=== PATIENT | female | born 1970 | race Caucasian/White ===

== ENCOUNTER 2019-09-08 23:20 | Inpatient (IN) | payer OTHER ==
[2019-09-09 02:13] LABS: Legionella Urinary Ag Negative (Negative); Strep pneumo Urine Ag NEGATIVE (NEGATIVE)
[2019-09-09] MEDS ORDERED: Ondansetron ODT 4 MG TAB PO SCH (03:00)
[2019-09-09] MEDS: Acetaminophen 325 MG TAB PO PRN (03:24)
[2019-09-09] MEDS ORDERED: Senokot S 8.6-50 MG TAB PO PRN (03:57)
[2019-09-09] MEDS: Levothyroxine Sodium 100 MCG TAB PO SCH (04:31)
[2019-09-09] MEDS: Sodium Chloride 0.9% 1,000 ML IV SCH (04:32)
[2019-09-09 06:31] LABS: HBCM Index 0.05 S/CO (0-0.79); Hep A IgM AB Non-Reactive (NonReactive); Hep A IgM S/CO 0.13 S/CO (0-0.79); Hep B Surf Ag Non-Reactive S/CO (NonReactive); Hep C IgG Ab Non-Reactive (NonReactive); Hep C Index 0.09 S/CO (0-0.79); Hepatitis B Core IgM Abs Non-Reactive (NonReactive)
[2019-09-09] MEDS: Calcitriol 0.25 MCG CAP PO SCH (08:21)
[2019-09-09] MEDS: Ferrous Sulfate 325 MG TAB PO SCH ×3 (08:21→16:59)
[2019-09-09] MEDS: Enoxaparin Sodium 40 MG/0.4 ML SYRINGE SC SCH (08:21)
[2019-09-09] MEDS: Aspirin 325 mg Enteric Coated Tablet PO SCH (08:21)
[2019-09-09] MEDS: Loratadine 10 MG TAB PO SCH (08:21)
[2019-09-09] MEDS: FLUoxetine HCl 20 MG CAP PO SCH ×2 (08:21→20:40)
--- NOTE | 2019-09-09 10:29 | CT ---
Exam: Chest CT with contrast HISTORY: Pneumonia. Hypoxia. COMPARISON: 09/08/2019 FINDINGS: Lower neck and axilla: No masses or lymphadenopathy Mediastinum: No mass, lymphadenopathy or hematoma. HEART: Normal heart size. No significant pericardial fluid. Aorta: Normal caliber. No periaortic fat stranding Upper abdomen: Hypoattenuation of liver suggesting hepatic steatosis. Surgically absent gallbladder. Indeterminate 1.5 x 1.3 cm lesion in the right renal cortex. Trachea and central bronchi: Patent Pleural spaces: No pleural effusion or pneumothorax LUNGS: There are diffuse groundglass opacities throughout the lung parenchyma. Nodules: No suspicious masses or nodules in the left or right lung. Osseous structures: No acute osseous abnormalities IMPRESSION: Diffuse multifocal groundglass opacities. Correlate for edema, infiltrate due to a viral process or i nhalation of noxious substance. Continued surveillance to ensure resolution is recommended. When compared to the previous examination, the degree of groundglass opacification has progressed in the l eft and right lung.
--- NOTE | 2019-09-09 13:28 | CON ---
DATE OF CONSULTATION: 09/09/2019 HISTORY OF PRESENT ILLNESS: A 49-year-old lady with history of hypertension, some form of heart problem, which she describes as a dilated heart, who usually goes to [place] for medical and lives in [place] and recently went to [place] to visit some relatives came back to [facility] and then developed respiratory illness about 3 to 4 days ago, which is progressively getting worse. She had some fever associated with it and some runny nose and nausea. The patient has been started on antimicrobial therapy. An influenza test was negative. Currently, she is awake and alert, has a raspy voice and no headaches. No visual symptoms. Some sore throat, coughing intermittently, but not much sputum production. No chest pain. No back pain. No abdominal pain or diarrhea. No genitourinary symptoms. No joint symptoms. No neurological symptoms. PAST MEDICAL HISTORY: Hypertension, enlarged heart, hypothyroidism, and asthma. SOCIAL HISTORY: Current smoker. Lives in [place]. Recent travel to [place], [place], and [place]. FAMILY HISTORY: Noncontributory. Otherwise, no recent contact with any sick person. ALLERGIES: VARIOUS INHALERS, CEPHALOSPORIN, CHANTIX, DOXYCYCLINE, FLONASE, NAPROXEN, SULFA DRUGS. MEDICATION LIST: She had been on: 1. Inhalers. 2. Augmentin. 3. Ferrous sulfate. 4. Fluticasone. 5. Lansoprazole. 6. Levothyroxine. 7. Lisinopril. 8. Loratadine. 10. Tizanidine. 11. Zofran. 12. Imitrex. 13. Temazepam. PHYSICAL EXAMINATION: VITAL SIGNS: T-max 101, now she is 98.1, blood pressure 104/70, pulse 84, respirations 18 to 26, and O2 saturation 95% on 2 L. SKIN: Normal. There is no lymphadenopathy. HEENT: Ocular movements conjugate. Oral cavity with quite a few missing teeth, some gum disease. NECK: Supple. No jugular vein distention. LUNGS: With faint inspiratory crackles, right and left hemithorax. HEART: S1 and S2. Regular rate. No S3 or S4. ABDOMEN: Soft. Not distended or tender. No ascites. No bladder distention. No joint inflammatory activity. EXTREMITIES: No edema. Pulses are 1+ in dorsalis pedis. Cap refill normal. Moves extremities equally. Plantar responses are flexor. No clonus. NEUROLOGIC: She is awake, alert, and oriented. Speech appears to be normal. Follows commands. Good orientation. LABORATORY DATA: Labs from yesterday, white cell count 17,000, hemoglobin 13.6, platelets 420. Predominance of mature neutrophils. Creatinine 0.96. Liver profile with AST 51, ALT 59, alkaline phosphatase 119, CK 241. TSH is normal. Urinalysis with 0 to 3 wbc's. Two sets of blood cultures pending. Influenza A and B negative. CT of the chest with patchy ground-glass opacities in both lung koroma, upper and lower lungs, relatively sparing of right lower lobe. Small nodular densities seen. ASSESSMENT: 1. Hypertension with cardiomegaly in some form of atrial arrhythmia in the past. 2. Respiratory illness of acute onset over the past 4 days with some travel history and diffuse ground-glass opacities in lung koroma. 3. Neutrophilia. DISCUSSION: Differential diagnosis includes viral pneumonias versus bacterial atypical pneumonia. The CHF would be another possibility, but that appears less likely, although there might be a component of both. Check respiratory virus PCR panel. If that is negative, then I would recommend testing for coronavirus, COVID-19. I would keep her on strict droplet precautions if not airborne. If the respiratory virus PCR is negative, I would probably transfer to airborne until COVID testing is negative. May consider IND use of Remdesivir if test is + for Covid- 19 or combination Kaletra/Ritonavir. Job ID: [id number] [facility]
[2019-09-09] MEDS ORDERED: Iopamidol-370 76% 500 ML 1 ML ONE (15:19)
[2019-09-09] MEDS: Temazepam 15 MG CAP PO SCH (20:41)
[2019-09-09] MEDS ORDERED: FLU VACC QS2019-20(6MOS UP)/PF 60 MCG/0.5 ML SYRINGE IM ONE (21:00)
[2019-09-10] MEDS: Sodium Chloride 0.9% 1,000 ML IV SCH ×2 (00:02→20:32)
[2019-09-10] MEDS: Levothyroxine Sodium 100 MCG TAB PO SCH (05:11)
[2019-09-10 05:42] LABS: #Eosinphils 0.1 thou/uL (0.0-0.7); #Monocytes 0.8 thou/uL (0.11-0.59); #Neutrophils 14.7 thou/uL (1.40-6.50); %Eosinophils 0.7 % (0.0-10.0); %Lymphocytes 11.6 % (21.0-51.0); %Monocytes 4.6 % (0.0-10.0); %Neutrophils 83.1 % (42.0-75.0); Hemoglobin 12.3 g/dL (12.0-16.0); Mean Corpuscular HGB CONC 33.8 g/dL (32.0-36.0); Mean Corpuscular Hemoglobin 32.1 pg (27.0-31.0); Mean Corpuscular Volume 94.7 fL (78.0-98.0); Mean Platelet Volume 6.2 fL (7.4-10.4); Platelet Count 438 thou/uL (130-400); RBC Distribution Width 12.8 % (11.5-14.5); Red Blood Cell (RBC) Count 3.82 mill/uL (4.20-5.40); White Blood Cell (WBC) Count 17.6 thou/uL (4.8-10.8)
[2019-09-10 06:17] LABS: Anion Gap 15 mmol/L (10-20); BUN (Urea Nitrogen) 11 mg/dL (7.0-18.7); Calc. Creatinine Clearance 148 mL/min (70-130); Calcium 7.5 mg/dL (7.8-10.44); Carbon Dioxide 16 mmol/L (22-29); Chloride 107 mmol/L (98-107); Estimated GFR-MDRD 76; Glucose 101 mg/dL (70-105); Potassium 3.6 mmol/L (3.5-5.1); Sodium 134 mmol/L (136-145)
[2019-09-10] MEDS: FLUoxetine HCl 20 MG CAP PO SCH ×2 (08:23→20:41)
[2019-09-10] MEDS: Enoxaparin Sodium 40 MG/0.4 ML SYRINGE SC SCH (08:23)
[2019-09-10] MEDS: Aspirin 325 mg Enteric Coated Tablet PO SCH (08:23)
[2019-09-10] MEDS: Loratadine 10 MG TAB PO SCH (08:23)
[2019-09-10] MEDS: Ferrous Sulfate 325 MG TAB PO SCH ×3 (08:23→16:25)
[2019-09-10] MEDS: Calcitriol 0.25 MCG CAP PO SCH (08:23)
--- NOTE | 2019-09-10 10:59 | PRG ---
DATE OF SERVICE: 09/10/2019 SUBJECTIVE: The patient is transferred to airborne precaution room. She is complaining of dyspnea at rest with 4 L of nasal cannula O2 supplementation. No headaches. A little bit of cough. No sputum production. No abdominal pain. She is able to eat breakfast. No vomiting. No chest pain. Voiding without difficulty. No diarrhea. No genitourinary symptoms. No neurological symptoms. OBJECTIVE: VITAL SIGNS: T-max is down to 99.4, 99.6. She is now 98.9, pulse is 92, O2 saturation is 90% on 4 L nasal cannula. GENERAL: Awake, alert, and oriented. HEENT: Ocular movements conjugate. Sclerae white. Pupils are equal and reactive. LUNGS: With faint inspiratory crackles in right and left base. HEART: S1 and S2. Regular rate. No S3 or S4. ABDOMEN: Soft, not distended or tender. No ascites. No bladder distention. EXTREMITIES: No joint inflammatory activity. Moves extremities equally. NEURO: Alert, oriented. Speech is normal. Follows commands. LABORATORY DATA: Labs need to be repeated today. The respiratory virus PCR from yesterday was negative. ASSESSMENT AND DISCUSSION: Hypertension, cardiomegaly, some form of atrial arrhythmia, and respiratory illness of acute onset after travel to [place] among other places, diffuse ground-glass opacities in lung koroma per CT. Again, the differential diagnosis includes the possibility of SARS-2 coronavirus infection , and the patient's testing is in process. We will try to see if we can get another lab to run the test, maybe either [facility] or [facility] to see if we can get a faster result. The patient may need to be transferred to the intensive care unit depending on future developments, repeat labs and chest x-ray. Remdesivir protocol requires a + test. Job ID: [id number] [facility]
--- NOTE | 2019-09-10 11:51 | RAD ---
XR Chest 1 View Portable HISTORY: Pneumonia COMPARISON: 08/10/2019 FINDINGS: The heart is normal. The lungs are expanded with prominent interstitial markings which demo nstrate mild interval worsening since last exam. No lobar consolidation, pneumothoraces or pleural effusions are seen.
[2019-09-10 11:52] LABS: #Basophils 0.1 thou/uL (0.0-0.2); #Eosinphils 0.1 thou/uL (0.0-0.7); #Lymphocytes 1.9 thou/uL (1.20-3.40); #Monocytes 0.7 thou/uL (0.11-0.59); #Neutrophils 13.6 thou/uL (1.40-6.50); %Basophils 0.5 % (0.0-1.0); %Eosinophils 0.6 % (0.0-10.0); %Lymphocytes 11.6 % (21.0-51.0); %Monocytes 4.2 % (0.0-10.0); %Neutrophils 83.1 % (42.0-75.0); Hemoglobin 11.9 g/dL (12.0-16.0); Mean Corpuscular HGB CONC 32.5 g/dL (32.0-36.0); Mean Corpuscular Hemoglobin 31.1 pg (27.0-31.0); Mean Corpuscular Volume 95.7 fL (78.0-98.0); Mean Platelet Volume 6.2 fL (7.4-10.4); Platelet Count 433 thou/uL (130-400); RBC Distribution Width 12.7 % (11.5-14.5); Red Blood Cell (RBC) Count 3.82 mill/uL (4.20-5.40); White Blood Cell (WBC) Count 16.3 thou/uL (4.8-10.8)
[2019-09-10 12:18] LABS: Anion Gap 15 mmol/L (10-20); BUN (Urea Nitrogen) 10 mg/dL (7.0-18.7); Calc. Creatinine Clearance 153 mL/min (70-130); Calcium 7.3 mg/dL (7.8-10.44); Carbon Dioxide 17 mmol/L (22-29); Chloride 104 mmol/L (98-107); Estimated GFR-MDRD 79; Glucose 132 mg/dL (70-105); Sodium 133 mmol/L (136-145)
[2019-09-10] MEDS ORDERED: predniSONE 20 MG TAB PO SCH (16:15)
[2019-09-10] MEDS ORDERED: Potassium Chloride 20 MEQ TAB PO SCH ×2 (16:15→17:00)
--- NOTE | 2019-09-10 18:07 | CON ---
DATE OF CONSULTATION: 09/10/2019 SERVICE: Pulmonary Medicine. REASON FOR CONSULTATION: ICU patient. HISTORY OF PRESENT ILLNESS: The patient is a 49-year-old white female with past medical history significant for COPD secondary to tobacco abuse. She had some recent travel. Within a week, she started having onset of fevers and increasing dyspnea that limits her activity. She presented to the emergency department. A chest x-ray demonstrated an atypical pattern of injury. A CT of the chest was performed, demonstrating diffuse ground-glass opacifications with a central predominance, sparing the periphery. Ultimately, Coronavirus as well within our differential, so she was appropriately isolated. She is being moved down to the ICU, so that she could be kept on a one-on-one basis. Her oxygen requirements are increasing ever so slightly. We escalated her to high-flow nasal cannula and she seemed to tolerate that quite well. PAST MEDICAL HISTORY: 1. Hypertension. 2. Hypothyroidism. 3. COPD. 4. Major depressive disorder. 5. Anemia. 6. Gastroesophageal reflux disease. 7. Rhinitis. 8. Migraine headache. PAST SURGICAL HISTORY: 1. Hysterectomy, partial. 2. Thyroidectomy, partial. 3. Cholecystectomy. 4. Tubal ligation. 5. Unilateral oophorectomy on the left. 6. Excision of fibroids from uterus. SOCIAL HISTORY: She currently smokes half pack to a pack on a daily basis and has greater than a [id number] history of smoking. Denies any illicit drugs. She has been without any alcohol for over a year. She vehemently denies any exposure to chemicals, dust, asbestos, or tuberculosis. She has no exposures to nebulized wheels or vaping. She denies applying any vapor rub around her chest or face. FAMILY HISTORY: Noncontributory. ALLERGIES: CEFACLOR, BENADRYL, DOXYCYCLINE, FLUTICASONE, HYDROCODONE, HYDROXYZINE, LATEX, MOMETASONE, NAPROXEN, MIDOL, PHENAZOPYRIDINE, SALMETEROL, POTASSIUM, SULFA, TETRACYCLINE, CHANTIX, AND ZYFLO. REVIEW OF SYSTEMS: General; head, ears, eyes, nose, and throat; cardiovascular; respiratory; GI; ; musculoskeletal; neurologic; and skin is negative except as mentioned in the HPI. PHYSICAL EXAMINATION: VITAL SIGNS: Afebrile currently with a T-max of 101 on presentation. Pulse 92, blood pressure 117/69, respirations 22, and saturation 98% on 40% delivered via high-flow nasal cannula. GENERAL: The patient is awake and alert, in no apparent distress. LUNGS: Decent air entry. No crackles appreciated. There is a prolonged expiratory phase with a little bit of wheezing. HEART: Normal rate. Regular. ABDOMEN: Soft, nontender, and nondistended. Bowel sounds are positive. MUSCULOSKELETAL: No cyanosis or clubbing. There is no pitting in the bilateral lower extremities. NEUROLOGIC: Grossly nonfocal. LABORATORY DATA: WBC 16.3, hemoglobin 11.9, and platelets 433,000. Basic metabolic profile is unremarkable except for a potassium of 3.0. Lactate has cleared to 1.6. TSH falls within the normal limits. Troponin is negative x1. AST and ALT are gently downtrending to 51 and 59 respectively, alkaline phosphatase is also improving. Calcium 8.2. CK of 241. Urinalysis is unremarkable except for a small amount of red blood cells. Urine drug screen is positive for benzodiazepines, but otherwise no foreign substances are detected. Hepatitis A, B, and C are all nonreactive. Strep and Legionella urine antigens are negative. Respiratory virus panel and influenza A and B are both unremarkable. IMAGING STUDIES: CT of the chest demonstrates ground-glass opacifications, scattered throughout bilateral lung koroma with sparing of the periphery. This is more severe centrally. ASSESSMENT: 1. Acute hypoxic respiratory failure. 2. Chronic obstructive pulmonary disease with acute exacerbation. 3. Community-acquired pneumonia, secondary to an atypical pathogen. DISCUSSION AND PLAN: I will put her on prednisone 40 mg p.o. daily. We will give her first dose now. We will schedule nebulized medications q.4 h. Agree with the antibiotic directed at atypical pathogens. Supportive measures will be continued. The Coronavirus assay have been sent off and will hopefully come back to us within 24 to 48 hours. She will remain appropriately isolated until we have results. Potassium will be replaced. Pulmonary/Critical Care will continue to follow along. 70 minutes have been devoted to this patient in various activities. I personally reviewed all imaging studies and laboratory data noted within this document. For fifty percent of this time, I was interacting with the patient at the bedside or coordinating care with the care team. For the remainder of the time I was immediately available to the patient in the hospital unit. Job ID: [id number] [facility]
[2019-09-10] MEDS: Lopinavir/Ritonavir 200-50mg TAB PO SCH (20:32)
[2019-09-10] MEDS: Temazepam 15 MG CAP PO SCH (20:32)
[2019-09-10] MEDS ORDERED: Fluticasone Propionate [Flovent Diskus] 50 MCG INH SCH (22:30)
[2019-09-10] MEDS: Acetaminophen 325 MG TAB PO PRN (22:49)
[2019-09-10] MEDS ORDERED: BUDESONIDE FORMOTEROL INH SCH (23:00)
[2019-09-11 03:58] LABS: #Lymphocytes 1.5 thou/uL (1.20-3.40); #Monocytes 0.7 thou/uL (0.11-0.59); #Neutrophils 15.4 thou/uL (1.40-6.50); %Eosinophils 0.2 % (0.0-10.0); %Lymphocytes 8.4 % (21.0-51.0); %Monocytes 3.7 % (0.0-10.0); %Neutrophils 87.6 % (42.0-75.0); Mean Corpuscular HGB CONC 33.4 g/dL (32.0-36.0); Mean Corpuscular Hemoglobin 31.9 pg (27.0-31.0); Mean Corpuscular Volume 95.4 fL (78.0-98.0); Mean Platelet Volume 6.2 fL (7.4-10.4); Platelet Count 462 thou/uL (130-400); RBC Distribution Width 12.7 % (11.5-14.5); Red Blood Cell (RBC) Count 3.75 mill/uL (4.20-5.40); White Blood Cell (WBC) Count 17.5 thou/uL (4.8-10.8)
[2019-09-11 04:19] LABS: ALT (SGPT) 50 U/L (8-55); AST (SGOT) 27 U/L (5-34); Albumin 3.2 g/dL (3.5-5.0); Alkaline Phosphatase 138 U/L (40-110); Anion Gap 12 mmol/L (10-20); BUN (Urea Nitrogen) 10 mg/dL (7.0-18.7); Bilirubin, Total 0.6 mg/dL (0.2-1.2); CK (CPK) 132 U/L (29-168); Calc. Creatinine Clearance 149 mL/min (70-130); Calcium 7.3 mg/dL (7.8-10.44); Carbon Dioxide 20 mmol/L (22-29); Chloride 108 mmol/L (98-107); Estimated GFR-MDRD 77; Globulin 3.5 g/dL (2.4-3.5); Glucose 139 mg/dL (70-105); Phosphorus 4.5 mg/dL (2.3-4.7); Potassium 3.8 mmol/L (3.5-5.1); Protein, Total 6.7 g/dL (6.0-8.3); Sodium 136 mmol/L (136-145)
[2019-09-11] MEDS: Levothyroxine Sodium 100 MCG TAB PO SCH (05:02)
[2019-09-11] MEDS: Sodium Chloride 0.9% 1,000 ML IV SCH ×2 (05:28→16:50)
[2019-09-11 06:05] VITALS: BMI 37.6
[2019-09-11] MEDS ORDERED: Fluticasone Propionate [Flovent Diskus] 50 MCG INH SCH (06:30)
[2019-09-11] MEDS: Ondansetron PF 4 MG/2 ML Vial IVP PRN (07:39)
[2019-09-11] MEDS: BUDESONIDE FORMOTEROL INH SCH ×2 (07:58→17:21)
[2019-09-11] MEDS: Calcitriol 0.25 MCG CAP PO SCH (08:40)
[2019-09-11] MEDS: Ferrous Sulfate 325 MG TAB PO SCH ×3 (08:40→16:50)
[2019-09-11] MEDS: Loratadine 10 MG TAB PO SCH (08:41)
[2019-09-11] MEDS: Lopinavir/Ritonavir 200-50mg TAB PO SCH (08:41)
[2019-09-11] MEDS: FLUoxetine HCl 20 MG CAP PO SCH ×2 (08:41→20:12)
[2019-09-11] MEDS: predniSONE 20 MG TAB PO SCH (08:41)
[2019-09-11] MEDS: Aspirin 325 mg Enteric Coated Tablet PO SCH (08:41)
[2019-09-11] MEDS: Enoxaparin Sodium 40 MG/0.4 ML SYRINGE SC SCH (08:42)
[2019-09-11] MEDS: Acetaminophen 325 MG TAB PO PRN (08:44)
[2019-09-11] MEDS: Potassium Chloride 20 MEQ TAB PO SCH ×2 (08:49→20:12)
[2019-09-11] MEDS ORDERED: Potassium Chloride 20 MEQ TAB PO SCH (09:00)
--- NOTE | 2019-09-11 09:07 | PRG ---
DATE OF SERVICE: 09/11/2019 SERVICE: Pulmonary Medicine. INTERVAL HISTORY: Overnight, the patient had a little bit of increasing shortness of breath. As such, she is put on high-flow nasal cannula. She settled down with that, but this morning, she still feels that her breathing is little short. She denies any current chest discomfort, nausea, or vomiting and is otherwise in her usual state of health. PHYSICAL EXAMINATION: VITAL SIGNS: Afebrile, currently with a T-max overnight of 100.3; pulse 95; blood pressure 116/76; respirations 31; and saturation 96%, currently on 40% via high-flow nasal cannula. GENERAL: The patient is awake and alert, in no apparent distress. LUNGS: Decent air entry. Crackles are present. No prolonged expiratory phase or wheezing is otherwise appreciated. HEART: Normal rate. Regular. ABDOMEN: Soft, nontender, and nondistended. Bowel sounds are positive. MUSCULOSKELETAL: No cyanosis or clubbing. There is no pitting in bilateral lower extremities. NEUROLOGIC: Grossly nonfocal. LABORATORY DATA: WBC 17.5, hemoglobin 12.0, and platelets 462,000. Basic metabolic profile is unremarkable. Liver function studies are also unremarkable. Legionella and urine strep antigens are negative. Hepatitis serologies are negative. Respiratory virus panel is negative. Influenza A and B are also unremarkable. ASSESSMENT: 1. Acute hypoxic respiratory failure. 2. Chronic obstructive pulmonary disease with acute exacerbation. 3. Community-acquired pneumonia secondary to atypical pathogen. 4. Abnormal CT characterized by centrally-located ground-glass opacifications, which are diffuse as well as a little interstitial fullness. There is sparing of the dependent and peripheral areas. DISCUSSION AND PLAN: We will continue supportive care including steroids, nebulized medications, and antibiotics. Antiviral therapy has been initiated. There is a possibility somebody know something, I do not. Coronavirus is on our differential, though if the test is negative, bronchoscopy may need to be considered. Pulmonary/Critical Care will follow. Job ID: [id number]
[2019-09-11 10:34] LABS: Ref Lab Test Ordered COVID19 PCR NASOPHAR
[2019-09-11 10:39] LABS: Ref Lab Test Ordered COVID19 PCR THROAT
--- NOTE | 2019-09-11 14:28 | PRG ---
DATE OF SERVICE: 09/11/2019 SUBJECTIVE: The patient is in C11. She is awake and appears more comfortable. Still a little bit tachypneic and a little raspy voice. No chest pain. No diarrhea. Able to eat. No sore throat. No genitourinary symptoms. No headaches. She had a temperature max of 100.3 yesterday at around 4 p.m. She has been afebrile since, but she has been started on corticosteroids, so that may mask the presentation. A little bit flushed in the facial area. No other skin lesions. She has a peripheral IV access and is urinating spontaneously in the bedside commode. OBJECTIVE: VITAL SIGNS: BP 119/69, heart rate 90, respiratory rate 41 to 45 with O2 saturation 92%. HEENT: Ocular movements are conjugate. Sclerae are white. Pupils are equal. LUNGS: With faint inspiratory crackles bilaterally. HEART: S1 and S2. Regular rate. ABDOMEN: Soft. Not distended or tender. No ascites. No bladder distention. MUSCULOSKELETAL: No joint inflammatory activity. EXTREMITIES: Trace edema in lower extremities. Moves all extremities equally. NEUROLOGIC: Cognitive function appears to be intact. She recalls that she was in the number of nurseries looking for rios, and so , she may have had some exposure to a particular antigen that may have been associated with hypersensitivity pneumonia. The first COVID-19 PCR was negative, which resulted I believe late last night. ASSESSMENT AND DISCUSSION: Hypertension, cardiomegaly, some form of atrial arrhythmia, respiratory illness with acute onset after travel to [place] and other places, diffuse ground-glass opacities. The chest x-ray is worse than previously. Her oxygenation is still somewhat marginal. There seems to be some improvement with corticosteroids. I have discussed the case with [facility] including Dr. Vaz, and we have agreed that still there is a significant pretest likelihood of the COVID-19, and we should repeat a second COVID-19 PCR. This is 3 to 4 days after the first one, and if this one is negative, then we could fully discontinue all the precautions and maybe treat her as possible hypersensitivity pneumonitis or cryptogenic organizing pneumonia, but also continue levofloxacin. Job ID: [id number] [facility]
[2019-09-11 15:33] LABS: Ref Lab Test Ordered COVID19 PCR NP; Ref Lab Test Ordered COVID19 PCR THROAT
--- NOTE | 2019-09-11 16:28 | PDOC.HOSPP ---
- Subjective Encounter Date: 09/11/19 Subjective: Doing a little better. Feels like the steroids are helping. Breathing a little deeper. - Objective Vital Signs & Weight: Vital Signs (12 hours) Temp Pulse Ox 09/11/19 16:00 97.7 F 09/11/19 11:00 97.9 F 09/11/19 08:14 95 09/11/19 08:00 6 L 09/11/19 07:00 97.6 F 09/11/19 05:00 99.0 F Weight Weight 240 lb 8.389 oz Most Recent Monitor Data Heart Rate from ECG 84 NIBP 127/75 NIBP BP-Mean 92 Respiration from ECG 28 SpO2 93 I&O: 09/10/19 09/11/19 09/12/19 06:59 06:59 06:59 Intake Total 2650 2406 420 Output Total 1800 520 Balance 2650 606 -100 Result Diagrams: 09/11/19 03:43 09/11/19 03:43 Hospitalist ROS - Medication Medications: Active Medications Generic Name Dose Route Start Last Admin Trade Name Freq PRN Reason Stop Dose Admin Acetaminophen 650 mg 09/09/19 02:48 09/11/19 08:44 Tylenol PO 650 mg Q4H PRN Administration Headache/Fever/Mild Pain (1-3) Aspirin 325 mg 09/09/19 09:00 09/11/19 08:41 Ecotrin PO 325 mg DAILY MARY LOU Administration Calcitriol 0.25 mcg 09/09/19 09:00 09/11/19 08:40 Rocaltrol PO 0.25 mcg DAILY MARY LOU Administration Enoxaparin Sodium 40 mg 09/09/19 09:00 09/11/19 08:42 Lovenox SC 40 mg 0900 MARY LOU Administration Ferrous Sulfate 325 mg 09/09/19 08:00 09/11/19 11:30 Feosol PO 325 mg TID-WM MARY LOU Administration Fluoxetine HCl 40 mg 09/09/19 09:00 09/11/19 08:41 Prozac PO 40 mg BID MARY LOU Administration Levofloxacin 750 mg/ Device 150 mls @ 100 mls/hr 09/09/19 05:00 09/11/19 05: 02 IVPB 150 mls Q24HR MARY LOU Administration Sodium Chloride 1,000 mls @ 50 mls/hr 09/09/19 04:00 09/11/19 05:28 Normal Saline 0.9% IV 1,000 mls .Q20H MARY LOU Administration Levothyroxine Sodium 200 mcg 09/09/19 06:00 09/11/19 05:02 Synthroid PO 200 mcg 0600 MARY LOU Administration Loratadine 10 mg 09/09/19 09:00 09/11/19 08:41 Claritin PO 10 mg DAILY MARY LOU Administration Ondansetron HCl 4 mg 09/09/19 03:57 09/11/19 07:39 Zofran IVP 4 mg Q6H PRN Administration Nausea/Vomiting Pantoprazole Sodium 40 mg 09/09/19 09:00 09/11/19 08:40 Protonix PO 40 mg DAILY MARY LOU Administration Budesonide 0 each 09/11/19 06:30 09/11/19 07:58 Formoterol 160/4.5 [ INH 1 each Symbicort] BID-RT MARY LOU Administration Potassium Chloride 20 meq 09/11/19 09:00 09/11/19 08:49 K-Dur PO 20 meq BID MARY LOU Administration Prednisone 40 mg 09/11/19 08:00 09/11/19 08:41 Prednisone PO 09/14/19 08:01 40 mg QAM-WM MARY LOU Administration Temazepam 30 mg 09/09/19 21:00 09/10/19 20:32 Restoril PO 30 mg HS MARY LOU Administration - Exam General Appearance: NAD, awake alert General - other findings: Hoarseness Heart: RRR, no murmur, no gallops, no rubs, normal peripheral pulses Respiratory: rales (Mild, diffuse) Gastrointestinal: soft, non-tender, non-distended, normal bowel sounds, no palpable masses, no hepatomegaly, no splenomegaly, no bruit Extremities: no cyanosis, no clubbing, no edema Musculoskeletal: normal tone Psychiatric: normal affect, normal behavior, A&O x 3 Hosp A/P (1) Acute respiratory failure with hypoxia Code(s): J96.01 - ACUTE RESPIRATORY FAILURE WITH HYPOXIA Status: Acute (2) Pneumonia Code(s): J18.9 - PNEUMONIA, UNSPECIFIED ORGANISM Status: Acute (3) COPD (chronic obstructive pulmonary disease) Status: Acute - Plan Patient initially admitted with respiratory symptoms, hypoxia and fever. CT consistent with viral pneumonia. Isolated and contacts limited. Covid 19 sent and is negative. Given the situation, a repeat is being sent and isolation continues. She has been on anti-virals, antibiotics and steroids. Subjectively feeling better. Pulm and ID treating. Continuing follow peripherally to keep contacts to essential providers only for now. Patient was visiting plant nurseries and symptoms developed within a few hours. May be a hypersensitivity type reaction.
[2019-09-11] MEDS: Temazepam 15 MG CAP PO SCH (20:12)
[2019-09-12] MEDS: Levothyroxine Sodium 100 MCG TAB PO SCH (04:36)
[2019-09-12] MEDS: Ondansetron PF 4 MG/2 ML Vial IVP PRN (06:27)
[2019-09-12] MEDS: BUDESONIDE FORMOTEROL INH SCH ×2 (07:15→17:37)
[2019-09-12] MEDS: Enoxaparin Sodium 40 MG/0.4 ML SYRINGE SC SCH (08:27)
[2019-09-12] MEDS: FLUoxetine HCl 20 MG CAP PO SCH ×2 (08:27→20:29)
[2019-09-12] MEDS: predniSONE 20 MG TAB PO SCH (08:28)
[2019-09-12] MEDS: Calcitriol 0.25 MCG CAP PO SCH (08:28)
[2019-09-12] MEDS: Aspirin 325 mg Enteric Coated Tablet PO SCH (08:28)
[2019-09-12] MEDS: Loratadine 10 MG TAB PO SCH (08:28)
[2019-09-12] MEDS: Potassium Chloride 20 MEQ TAB PO SCH ×2 (08:28→20:29)
[2019-09-12] MEDS: Ferrous Sulfate 325 MG TAB PO SCH ×3 (08:29→17:19)
[2019-09-12] MEDS: Sodium Chloride 0.9% 1,000 ML IV SCH (12:34)
--- NOTE | 2019-09-12 14:27 | PRG ---
DATE OF SERVICE: 09/12/2019 SUBJECTIVE: The patient states that she is feeling better. She has headaches right now, but she apparently has had headaches chronically for quite a few years. No sore throat. No more coughing. No sputum production. No chest pain. No abdominal pain. OBJECTIVE: VITAL SIGNS: The temperature has normalized probably from corticosteroid initiation. O2 saturations are on oxygen around 97%, off oxygen around 88%. A little flushed in the skin, probably from the steroids. HEART: S1 and S2. Regular rate. LUNGS: With faint inspiratory crackles right and left hemithorax. No wheezing. ABDOMEN: Soft, not distended. EXTREMITIES: Moves all extremities equally. LABORATORY DATA: White cell count 17.5, hemoglobin 12, platelets 462. Creatinine 0.8, alkaline phosphatase 138. The second Manzanares virus assay is pending, probably should be resulting Saturday. If negative, then we will stop all the precautions and continue corticosteroids assuming some form of hypersensitivity pneumonia. In that regard depending on clinical progress, she may require a bronchoscopy for further evaluation. Job ID: [id number]
--- NOTE | 2019-09-12 18:19 | PRG ---
DATE OF SERVICE: 09/12/2019 [place] reportedly continued to improve. Heart rate to take a shower today. Her initial appears to be improving. Statistically, most likely she has an atypical pneumonia. Job ID: [id number]
--- NOTE | 2019-09-12 19:47 | PDOC.HOSPP ---
- Subjective Encounter Date: 09/12/19 Encounter Time: 19:30 Subjective: f/u for pneumonitis of unclear etiology ruling out for COVID-19 with the first test completed and awaiting 2nd confirmation testing. Receiving Levaquin/ Prednisone. - Objective Vital Signs & Weight: Vital Signs (12 hours) Temp Pulse Ox 09/12/19 19:00 98.2 F 09/12/19 15:00 97.8 F 09/12/19 11:00 97.8 F 09/12/19 07:55 96 Weight Weight 239 lb 10.279 oz Most Recent Monitor Data Heart Rate from ECG 85 NIBP 122/82 NIBP BP-Mean 95 Respiration from ECG 24 SpO2 98 I&O: 09/11/19 09/12/19 09/13/19 06:59 06:59 06:59 Intake Total 2406 2927 1557 Output Total 1800 1470 1100 Balance 606 1457 457 Result Diagrams: 09/11/19 03:43 09/11/19 03:43 Additional Labs: Microbiology 09/09/19 12:00 Nasopharyngeal swab Respiratory Virus Panel (PCR) - Final 09/09/19 12:00 Nasopharyngeal swab Influenza Types A,B Direct EIA - Final Laboratory Tests 09/09/19 09/09/19 09/10/19 01:44 01:44 05:19 WBC 17.6 H Potassium Ur L.pneumophila Ag Negative Ur Strep pneumoniae Ag NEGATIVE 09/10/19 09/10/19 11:33 11:33 WBC 16.3 H Potassium 3.0 L Ur L.pneumophila Ag Ur Strep pneumoniae Ag EKG Reviewed by me: Yes (Tele - SR) Hospitalist ROS - Medication Medications: Active Medications Generic Name Dose Route Start Last Admin Trade Name Freq PRN Reason Stop Dose Admin Acetaminophen 650 mg 09/09/19 02:48 09/11/19 08:44 Tylenol PO 650 mg Q4H PRN Administration Headache/Fever/Mild Pain (1-3) Aspirin 325 mg 09/09/19 09:00 09/12/19 08:28 Ecotrin PO 325 mg DAILY MARY LOU Administration Calcitriol 0.25 mcg 09/09/19 09:00 09/12/19 08:28 Rocaltrol PO 0.25 mcg DAILY MARY LOU Administration Enoxaparin Sodium 40 mg 09/09/19 09:00 09/12/19 08:27 Lovenox SC 40 mg 0900 MARY LOU Administration Ferrous Sulfate 325 mg 09/09/19 08:00 09/12/19 17:19 Feosol PO 325 mg TID-WM MARY LOU Administration Fluoxetine HCl 40 mg 09/09/19 09:00 09/12/19 08:27 Prozac PO 40 mg BID MARY LOU Administration Levofloxacin 750 mg/ Device 150 mls @ 100 mls/hr 09/09/19 05:00 09/12/19 04: 36 IVPB 150 mls Q24HR MARY LOU Administration Levothyroxine Sodium 200 mcg 09/09/19 06:00 09/12/19 04:36 Synthroid PO 200 mcg 0600 MARY LOU Administration Loratadine 10 mg 09/09/19 09:00 09/12/19 08:28 Claritin PO 10 mg DAILY MARY LOU Administration Ondansetron HCl 4 mg 09/09/19 03:57 09/12/19 06:27 Zofran IVP 4 mg Q6H PRN Administration Nausea/Vomiting Pantoprazole Sodium 40 mg 09/09/19 09:00 09/12/19 08:28 Protonix PO 40 mg DAILY MARY LOU Administration Budesonide 0 each 09/11/19 06:30 09/12/19 17:37 Formoterol 160/4.5 [ INH Not Given Symbicort] BID-RT [facility] Potassium Chloride 20 meq 09/11/19 09:00 09/12/19 08:28 K-Dur PO 20 meq BID MARY LOU Administration Prednisone 40 mg 09/11/19 08:00 09/12/19 08:28 Prednisone PO 09/14/19 08:01 40 mg QAM-WM MARY LOU Administration Temazepam 30 mg 09/09/19 21:00 09/11/19 20:12 Restoril PO 30 mg HS MARY LOU Administration - Exam General Appearance: NAD, awake alert Eye: PERRL, anicteric sclera ENT: normocephalic atraumatic, no oropharyngeal lesions Neck: supple, symmetric, no JVD, no thyromegaly Heart: RRR, no murmur, no gallops, no rubs, normal peripheral pulses Respiratory: rhonchi, tachypneic, wheezes Respiratory - other findings: diminished bilat Gastrointestinal: soft, non-tender, non-distended, normal bowel sounds, no palpable masses Extremities: no cyanosis, no clubbing, no edema Skin: normal turgor, no lesions Neurological: cranial nerve grossly intact, no new deficit Musculoskeletal: normal tone, normal strength, no muscle wasting Psychiatric: normal affect, A&O x 3 Hosp A/P (1) Pneumonitis Code(s): J18.9 - PNEUMONIA, UNSPECIFIED ORGANISM Status: Acute Plan: Suspected viral/atypical pneumonitis/PNA, continue Prednisone/Levaquin, awaiting 2nd COVID-19 rule out, airborne/contact precautions (2) Acute respiratory failure with hypoxia Code(s): J96.01 - ACUTE RESPIRATORY FAILURE WITH HYPOXIA Status: Acute Plan: Continue O2 supplementation, titrate to clinical response (3) COPD (chronic obstructive pulmonary disease) Status: Chronic Plan: Resume Symbicort/Singulair, continue Prednisone/Levaquin (4) Hypokalemia Code(s): E87.6 - HYPOKALEMIA Status: Acute Plan: KCL supplementation, serial K+ monitoring - Plan continue antibiotics, older adult social work specialist, respiratory therapy, DVT proph w/SCDs Continue isolation precautions Continue Levaquin/Prednisone Await 2nd COVID-19 testing after initial negative x 1 Duonebs/Singulair
[2019-09-12] MEDS: Temazepam 15 MG CAP PO SCH (20:29)
[2019-09-12] MEDS ORDERED: Non-Formulary Item 1 EACH (Budesonide-Formoterol [Symbicort 160-4.5] 1 PUFF) INH SCH (21:00)
[2019-09-13] MEDS: Levothyroxine Sodium 100 MCG TAB PO SCH (05:27)
[2019-09-13] MEDS: Ferrous Sulfate 325 MG TAB PO SCH ×3 (08:19→17:10)
[2019-09-13] MEDS: Potassium Chloride 20 MEQ TAB PO SCH ×2 (08:19→20:33)
[2019-09-13] MEDS: predniSONE 20 MG TAB PO SCH (08:19)
[2019-09-13] MEDS: Meloxicam 7.5 MG TAB PO SCH (08:19)
[2019-09-13] MEDS: Aspirin 325 mg Enteric Coated Tablet PO SCH (08:19)
[2019-09-13] MEDS: Calcitriol 0.25 MCG CAP PO SCH (08:19)
[2019-09-13] MEDS: FLUoxetine HCl 20 MG CAP PO SCH ×2 (08:19→20:33)
[2019-09-13] MEDS: Lisinopril 10 MG TAB PO SCH (08:20)
[2019-09-13] MEDS: Enoxaparin Sodium 40 MG/0.4 ML SYRINGE SC SCH (08:20)
[2019-09-13] MEDS: Cyanocobalamin (Vitamin B-12) 1,000 MCG TAB PO SCH (08:20)
[2019-09-13] MEDS: Loratadine 10 MG TAB PO SCH (08:20)
[2019-09-13] MEDS ORDERED: Montelukast Sodium 4 mg Chewable Tablet PO SCH (09:00)
[2019-09-13] MEDS: BUDESONIDE FORMOTEROL INH SCH (10:58)
--- NOTE | 2019-09-13 14:20 | PDOC.HOSPP ---
- Subjective Encounter Date: 09/13/19 Encounter Time: 14:20 Subjective: f/u for pneumonitis on initial high-flow O2 and r/o for COVID-19 x 2 PCR's. Feels better overall and no fever noted. - Objective Vital Signs & Weight: Vital Signs (12 hours) Temp Pulse Resp BP BP BP Pulse Ox 09/13/19 11:49 98.3 F 93 18 124/83 95 09/13/19 08:20 133/84 09/13/19 08:00 94 L 09/13/19 07:39 97.6 F 94 18 133/84 94 L 09/13/19 04:33 97.9 F 82 20 121/73 95 Weight Weight 239 lb 10.279 oz Most Recent Monitor Data Heart Rate from ECG 86 NIBP 120/84 NIBP BP-Mean 96 Respiration from ECG 23 SpO2 98 I&O: 09/12/19 09/13/19 09/14/19 06:59 06:59 06:59 Intake Total 2927 2877 480 Output Total 1470 1350 Balance 1457 1527 480 Result Diagrams: 09/11/19 03:43 09/11/19 03:43 Additional Labs: Microbiology 09/09/19 12:00 Nasopharyngeal swab Respiratory Virus Panel (PCR) - Final 09/09/19 12:00 Nasopharyngeal swab Influenza Types A,B Direct EIA - Final Laboratory Tests 09/09/19 09/09/19 09/10/19 01:44 01:44 05:19 WBC 17.6 H Potassium Ur L.pneumophila Ag Negative Ur Strep pneumoniae Ag NEGATIVE 09/10/19 09/10/19 11:33 11:33 WBC 16.3 H Potassium 3.0 L Ur L.pneumophila Ag Ur Strep pneumoniae Ag Hospitalist ROS - Medication Medications: Active Medications Generic Name Dose Route Start Last Admin Trade Name Freq PRN Reason Stop Dose Admin Acetaminophen 650 mg 09/09/19 02:48 09/11/19 08:44 Tylenol PO 650 mg Q4H PRN Administration Headache/Fever/Mild Pain (1-3) Aspirin 325 mg 09/09/19 09:00 09/13/19 08:19 Ecotrin PO 325 mg DAILY MARY LOU Administration Calcitriol 0.25 mcg 09/09/19 09:00 09/13/19 08:19 Rocaltrol PO 0.25 mcg DAILY MARY LOU Administration Cyanocobalamin 1,000 mcg 09/13/19 09:00 09/13/19 08:20 Vitamin B-12 PO 1,000 mcg DAILY MARY LOU Administration Enoxaparin Sodium 40 mg 09/09/19 09:00 09/13/19 08:20 Lovenox SC 40 mg 0900 MARY LOU Administration Ferrous Sulfate 325 mg 09/09/19 08:00 09/13/19 12:40 Feosol PO 325 mg TID-WM MARY LOU Administration Fluoxetine HCl 40 mg 09/09/19 09:00 09/13/19 08:19 Prozac PO 40 mg BID MARY LOU Administration Levofloxacin 750 mg/ Device 150 mls @ 100 mls/hr 09/09/19 05:00 09/13/19 05: 26 IVPB 150 mls Q24HR MARY LOU Administration Levothyroxine Sodium 200 mcg 09/09/19 06:00 09/13/19 05:27 Synthroid PO 200 mcg 0600 MARY LOU Administration Lisinopril 10 mg 09/13/19 09:00 09/13/19 08:20 Zestril PO 10 mg DAILY MARY LOU Administration Loratadine 10 mg 09/09/19 09:00 09/13/19 08:20 Claritin PO 10 mg DAILY MARY LOU Administration Meloxicam 7.5 mg 09/13/19 09:00 09/13/19 08:19 Mobic PO 7.5 mg DAILY MARY LOU Administration Ondansetron HCl 4 mg 09/09/19 03:57 09/12/19 06:27 Zofran IVP 4 mg Q6H PRN Administration Nausea/Vomiting Pantoprazole Sodium 40 mg 09/09/19 09:00 09/13/19 08:20 Protonix PO 40 mg DAILY MARY LOU Administration Budesonide 0 each 09/11/19 06:30 09/13/19 10:58 Formoterol 160/4.5 [ INH Not Given Symbicort] BID-RT MARY LOU Potassium Chloride 20 meq 09/11/19 09:00 09/13/19 08:19 K-Dur PO 20 meq BID MARY LOU Administration Prednisone 40 mg 09/11/19 08:00 09/13/19 08:19 Prednisone PO 09/14/19 08:01 40 mg QAM-WM MARY LOU Administration Temazepam 30 mg 09/09/19 21:00 09/12/19 20:29 Restoril PO 30 mg HS MARY LOU Administration - Exam General Appearance: NAD, awake alert Eye: PERRL, anicteric sclera ENT: normocephalic atraumatic, no oropharyngeal lesions Neck: supple, symmetric, no JVD, no thyromegaly Heart: RRR, no murmur, no gallops, no rubs, normal peripheral pulses Respiratory - other findings: occ wheeze, diminished in bases Gastrointestinal: soft, non-tender, non-distended, normal bowel sounds, no palpable masses Extremities: no cyanosis, no clubbing, no edema Skin: normal turgor, no lesions Neurological: cranial nerve grossly intact, no new deficit Musculoskeletal: normal tone, normal strength, no muscle wasting Psychiatric: normal affect, A&O x 3 Hosp A/P (1) Pneumonitis Code(s): J18.9 - PNEUMONIA, UNSPECIFIED ORGANISM Status: Acute Plan: Improving, continue Levaquin/Prednisone/Symbicort, r/o for COVID-19 x 2 (2) Acute respiratory failure with hypoxia Code(s): J96.01 - ACUTE RESPIRATORY FAILURE WITH HYPOXIA Status: Acute Plan: Continue O2 supplementation (3) COPD (chronic obstructive pulmonary disease) Status: Chronic Plan: See above for mgmt (4) Hypokalemia Code(s): E87.6 - HYPOKALEMIA Status: Acute Plan: KCL supplementation - Plan plan discussed w/ family, continue antibiotics, director of social work, respiratory therapy, out of bed/ambulate, DVT proph w/SCDs Continue isolation precautions Continue Levaquin/Prednisone Continue O2 supplementation Continue KCL supplementation AM lab: BMP, CBC Likely home in am
--- NOTE | 2019-09-13 15:34 | PRG ---
DATE OF SERVICE: 09/13/2019 SUBJECTIVE: The patient feeling better, sitting up in the room. All the isolation has been removed since the second COVID-19 test came back negative. Not much cough anymore. No sputum production. OBJECTIVE: VITAL SIGNS: She has been afebrile and BP 124/83, pulse 93, respirations 18, and O2 sats 95 with 3 L nasal cannula. GENERAL: Awake, alert, sitting in bed. LUNGS: Symmetric air entry, fairly clear breath sounds. HEART: S1 and S2. Regular rate. ABDOMEN: Soft, not distended. Moves extremities equally. LABORATORY DATA: The white cell count 17.5, probably from corticosteroid effect. Hemoglobin 12, platelets 462. ASSESSMENT: Diffuse pneumonitis with negative test for COVID-19, probably some form of hypersensitivity pneumonia. The patient has responded to corticosteroids and now she tells me that she had been worked up for some form of chronic lung disease at [facility] in [place] by a group of doctors and they have not yet achieved a formal diagnosis of her condition. She probably will have to go back to them and finish up the workup once she stabilizes. Apparently, had been on O2 supplementation for the past few months at home. So, looks like we are dealing with chronic pneumonitis, possibly cryptogenic organizing pneumonia, but we will have to leave this up to the team that is working her up in [facility]. Job ID: [id number]
[2019-09-13] MEDS ORDERED: Lorazepam 1 MG TAB PO PRN (21:19)
[2019-09-13] MEDS: Temazepam 15 MG CAP PO SCH (23:13)
[2019-09-14] MEDS: Levothyroxine Sodium 100 MCG TAB PO SCH (05:30)
[2019-09-14 06:39] LABS: Hemoglobin 13.6 g/dL (12.0-16.0); Mean Corpuscular HGB CONC 32.8 g/dL (32.0-36.0); Mean Corpuscular Volume 94.5 fL (78.0-98.0); Mean Platelet Volume 6.2 fL (7.4-10.4); Platelet Count 657 thou/uL (130-400); RBC Distribution Width 13.2 % (11.5-14.5); Red Blood Cell (RBC) Count 4.38 mill/uL (4.20-5.40); White Blood Cell (WBC) Count 19.6 thou/uL (4.8-10.8)
[2019-09-14 07:11] LABS: Anion Gap 18 mmol/L (10-20); BUN (Urea Nitrogen) 15 mg/dL (7.0-18.7); Calc. Creatinine Clearance 133 mL/min (70-130); Calcium 7.4 mg/dL (7.8-10.44); Carbon Dioxide 22 mmol/L (22-29); Chloride 100 mmol/L (98-107); Estimated GFR-MDRD 67; Glucose 87 mg/dL (70-105); Potassium 3.5 mmol/L (3.5-5.1); Sodium 136 mmol/L (136-145)
[2019-09-14] MEDS: BUDESONIDE FORMOTEROL INH SCH ×2 (07:21→07:46)
[2019-09-14 07:30] VITALS: TEMP 97.8
[2019-09-14 07:48] LABS: Band 3 % (5-11); Lymphocytes 16 % (21-51); MDiff Complete? YES; Metamyelocyte 2 % (0-0); Monocytes 9 % (0-10); Myelocyte 1 % (0-0); Neutrophil 68 % (42-75); RBC Morphology Normal
[2019-09-14] MEDS: Ferrous Sulfate 325 MG TAB PO SCH ×2 (08:26→12:02)
[2019-09-14] MEDS: predniSONE 20 MG TAB PO SCH (08:26)
[2019-09-14] MEDS: Aspirin 325 mg Enteric Coated Tablet PO SCH (08:27)
[2019-09-14] MEDS: Calcitriol 0.25 MCG CAP PO SCH (08:27)
[2019-09-14] MEDS: Cyanocobalamin (Vitamin B-12) 1,000 MCG TAB PO SCH (08:27)
[2019-09-14] MEDS: Lisinopril 10 MG TAB PO SCH (08:27)
[2019-09-14] MEDS: FLUoxetine HCl 20 MG CAP PO SCH (08:27)
[2019-09-14] MEDS: Loratadine 10 MG TAB PO SCH (08:28)
[2019-09-14] MEDS: Meloxicam 7.5 MG TAB PO SCH (08:28)
[2019-09-14] MEDS: Potassium Chloride 20 MEQ TAB PO SCH (08:28)
[2019-09-14] MEDS: Enoxaparin Sodium 40 MG/0.4 ML SYRINGE SC SCH (08:30)
[2019-09-14 08:34] VITALS: BP 133/84
--- NOTE | 2019-09-14 11:15 | PRG ---
DATE OF SERVICE: 09/14/2019 SERVICE: Pulmonary Medicine. INTERVAL HISTORY: The patient is doing fine from respiratory standpoint. She is on 2 L nasal cannula and indicates that she is breathing much better. Her thought process is a little bit scattered. She is taking lots of notes on napkins. Her cough is much improved. Manzanares virus testing over the weekend was unremarkable. Ultimately, she has been under workup for chronic lung related issues for the past several months through [place], dance master. I have encouraged her to get back in touch with them. I have also suggested that she needs to pickers material handlers the CD from our radiology department so that she can share that with her physician. PHYSICAL EXAMINATION: VITAL SIGNS: Afebrile. Pulse 92, blood pressure 132/79, respirations 20, and saturation 96% on 3 L nasal cannula. GENERAL: The patient is awake and alert, in no apparent distress. LUNGS: Decent air entry. Crackling have improved. There is no prolonged expiratory phase or wheezing present. HEART: Normal rate, regular. ABDOMEN: Soft. Nontender. Nondistended. Bowel sounds are positive. MUSCULOSKELETAL: No cyanosis or clubbing. There is no pitting in the bilateral lower extremities. NEUROLOGIC: Grossly nonfocal. LABORATORY DATA: WBC 19.6, hemoglobin 13.6, platelets 657,000. Basic metabolic profile is unremarkable with potassium of 3.5. All serologies are unremarkable. Miscellaneous testing for Manzanares virus was negative. Apparently, this was sent twice. Respiratory virus panel and influenza A and B are negative. ASSESSMENT: 1. Acute hypoxic respiratory failure, improving. 2. Chronic obstructive pulmonary disease with acute exacerbation, possible. 3. Community-acquired pneumonia secondary to atypical pathogen, suspected. 4. Abnormal CT characterized by centrally located ground-glass opacifications with interstitial fullness, sparing the periphery and dependent regions of the lung. DISCUSSION AND PLAN: The patient will need to follow up with her dance master in [place] on discharge from the hospital. I will extend the course of steroids out to 14 days. Antibiotics can be interrupted after a total duration of seven days, but there is no reason we can convert over to p.o. at this point. She can be transitioned. She has no further requirements for inpatient Pulmonary or Critical Care opinion, and I will sign off. Please call with additional questions or concerns through time. Job ID: [id number]
--- NOTE | 2019-09-14 12:46 | DIS ---
DATE OF ADMISSION: 09/09/2019 DATE OF DISCHARGE: 09/14/2019 DISCHARGE DIAGNOSES: 1. Pneumonitis, etiology unclear, likely inflammatory process. 2. Acute on chronic hypoxic respiratory failure, improved. 3. Acute chronic obstructive pulmonary disease exacerbation, improved. 4. Hypokalemia, improved. CONSULTATIONS: 1. Dr. Jerez and Dr. Fuentes with Pulmonology/Critical Care Service. 2. Dr. Burrows with Infectious Disease Service. PERTINENT LABORATORY AND X-RAY FINDINGS: Sodium ranged between 133 to 136, potassium ranged between 3.0 to 3.8, phosphorus 4.5, magnesium 2.1. CBC showed white blood cell count ranging between 16.3 to 19.6, hemoglobin ranged between 11.9 to 13.6. Hepatitis A, B, and C panel nonreactive on 09/09/2019. Urine Legionella and streptococcal pneumonia antigen negative on 09/09/2019. COVID-19 PCR negative x2. Influenza A and B antigen negative on 09/09/2019. Respiratory virus panel PCR negative on 09/09/2019. CT of the chest without contrast dated 09/09/2019, showed diffuse multifocal ground-glass opacities. Portable chest x-ray dated 09/10/2019, showed prominent interstitial markings bilaterally. HOSPITAL COURSE: The patient was initially admitted to the Critical Care Unit after presenting with increased cough, fever, and shortness of breath. The patient was initially admitted to the Critical Care Unit on isolation precautions after presenting with severe respiratory distress, hypoxemia, and concern for COVID-19. The patient underwent extensive evaluation with CT imaging of the chest showing diffuse ground-glass opacities and prominent bilateral interstitial markings. Screening influenza and respiratory virus panel were unrevealing and given the patient's presentation and risk factors, the patient was placed on respiratory isolation and ruled out for COVID-19 x 2. The patient was evaluated by the Infectious Disease Service and cleared of coronavirus. The patient received aggressive pulmonary supportive management including steroids and bronchodilator therapy. The patient transitioned to the medical floor, remaining stable through the remainder of the hospital course. I have examined the patient at the time of discharge and discussed followup instructions. The patient verbalized understanding and in agreement, and ready for discharge on 09/14/2019. DISCHARGE MEDICATIONS: 1. Prednisone 20 mg, take 2 tablets p.o. daily x5 days, followed by 1 tablet p.o. daily x5 days, followed by half a tablet p.o. daily x5 days. 2. Albuterol sulfate 90 mcg inhaled q.4 hours p.r.n. 3. Enteric-coated aspirin 325 mg p.o. daily. 4. Symbicort 160/4.5 one puff inhaled b.i.d. 5. Calcitriol 0.25 mcg p.o. daily. 6. Vitamin B12 of 1000 mcg p.o. daily. 7. Ferrous sulfate 325 mg p.o. t.i.d. 8. Fluoxetine 40 mg p.o. b.i.d. 9. Flovent 50 mcg inhaled b.i.d. 10. Prevacid 30 mg p.o. daily. 11. Levothyroxine 200 mcg p.o. daily. 12. Lisinopril 10 mg p.o. daily. 13. Claritin 10 mg p.o. daily. 14. Singulair 4 mg p.o. daily. 15. Mobic 7.5 mg p.o. daily. 16. Imitrex 100 mg p.o. q.2 hours p.r.n. migraine headaches. 17. Temazepam 30 mg p.o. at bedtime. 18. Zanaflex 4 mg p.o. t.i.d. FOLLOWUP: The patient may follow up with her primary care provider at [facility] after discharge. CONDITION ON DISCHARGE: Fair. ACTIVITY: Ad-nani. DIET: Heart healthy. CODE STATUS: Full. DISPOSITION: Home on 09/14/2019. TIME SPENT: Total time in preparing and coordinating discharge, 37 minutes. Job ID: [id number]
[2019-09-15] MEDS ORDERED: predniSONE 20 MG TAB PO SCH (08:00)
--- NOTE | 2019-09-16 21:47 | PQF ---
DAYANA MORALES CHARLES DO [id number] [facility] A- [id number] CLINICAL DOCUMENTATION CLARIFICATION FORM: POST DISCHARGE Addendum to original discharge summary date: ____ Late entry note date: __ DATE:09/16/2019 ATTN: CARLITOS FORTUNE DO Please exercise your independent, professional judgment in responding to the clarification form. Clinical indicators are provided on the bottom of this form for your review Please check appropriate box(s) to clarify if the following diagnosis has been ruled in or ruled out: Sepsis [ ] Ruled in diagnosis [ ] Continue to treat [ ] Resolved [ x ] Ruled out diagnosis [ ] Cannot rule out diagnosis [ ] Other diagnosis [ ] Unable to determine For continuity of documentation, please document condition throughout progress notes and discharge summary. Thank You. CLINICAL INDICATORS - SIGNS / SYMPTOMS / LABS [id number] in ED on 09/08 by Dewey Easley DO SIRS scoring:Productive coug/PNA, Yes patient did meet at least 1 criteria for step A.,Respiratory rate >20 , WBC count >12,000 or <4,000 or 10% bands , Yes , Patient did meet at least 2 ceriteria for Step B.,A sepsis alert was activated due to patient meeting the activation requirements in step A and step B- Documented in ED on 09/08 by Dewey Easley DO [id number] in ED on 09/08 by Dewey Easley DO Sepsis from pneumonia-Documented in ED on 09/08 by Dewey Easley DO WBC-17.6-Documented in laboratory Acute on chronic hypoxic respiratory failure -Documented in discharge summary on 09/13 by Iban Hamilton Pneumonia etiology unclear likely inflammatory process -Documented in discharge summary on 09/13 by Iban Hamilton RISK FACTORS Pneumonia etiology unclear likely inflammatory process -Documented in discharge summary on 09/13 by Iban Hamilton TREATMENTS Patient was given azithromycin and zosyn-Documented in ED on 09/08 by Dewey Easley DO Levaquin 750 mg IV-Documented in medication snapshot [employer] Winform Viewer (This form is maintained as a part of the permanent medical record) 2014 [employer], [employer]. All Rights Reserved [email or web address]
== END 2019-09-14 15:06 | disposition home or self-care (01) | DRG 193 ==
LOC: ERS 23:20 → SURG A 09-09 01:50 → CCU 09-10 13:59 → T4-B 09-12 22:19
PROVIDERS: ADMIT Internal Medicine; ATTEND Internal Medicine
DX: J18.9 Pneumonia, unspecified organism (principal); J96.21 Acute and chronic respiratory failure with hypoxia; J44.1 Chronic obstructive pulmonary disease with (acute) exacerbation; J44.0 Chronic obstructive pulmonary disease with (acute) lower respiratory infection; E87.6 Hypokalemia; I10 Essential (primary) hypertension; Z90.49 Acquired absence of other specified parts of digestive tract; Z90.710 Acquired absence of both cervix and uterus; Z98.51 Tubal ligation status; E89.0 Postprocedural hypothyroidism; F43.10 Post-traumatic stress disorder, unspecified; F17.210 Nicotine dependence, cigarettes, uncomplicated; Z88.1 Allergy status to other antibiotic agents; Z88.2 Allergy status to sulfonamides; Z88.8 Allergy status to other drugs, medicaments and biological substances; D72.0 Genetic anomalies of leukocytes; I51.7 Cardiomegaly; F32.9 Major depressive disorder, single episode, unspecified; K21.9 Gastro-esophageal reflux disease without esophagitis; G43.909 Migraine, unspecified, not intractable, without status migrainosus; Z90.721 Acquired absence of ovaries, unilateral
CPT/HCPCS: 36415; 71045; 71260; 80048; 80053; 80074; 82550; 83735; 84100; 85007; 85025; 85027; 87449; 87633; 87804; 87899; 99285; J1650; J1956; J2405; J7512; Q0162; Q9967